=== PATIENT | male | born 2000 | race Asian ===

== ENCOUNTER 2024-01-23 15:28 | Emergency (ER) | payer OTHER, SELFPAY ==
--- NOTE | ~2024-01-23 | XR_ITS ---
XR hand RT min 3V DATE: 01/23/2024 16:01 INDICATION: Injury from fall. Pain, swelling, abrasion TECHNIQUE: 3 views COMPARISON: None FINDINGS: There is a small smooth bony ossicle at the medial aspect of the head of the middle phalanx of the fourth digit. The smooth margins suggest that this is an chronic finding, likely an old small cortical avulsion fracture of the medial head of the middle phalanx; recent cortical avulsion fractu re is not definitively excluded considered much less likely. Recommend clinical correlation. No other fracture or dislocation, periosteal reaction or bone destruction is detected.. IMPRESSION: Probable small old cortical avulsion fracture of the dorsal medial aspect of the head of the middle phalanx of the fourth digit. No acute fracture or dislocation is evident Reviewed, dictated and finalized at location A.
--- NOTE | 2024-01-23 15:36 | ED.UPPEXIN ---
HPI - Extremity Injury (Upper) General Chief Complaint: Extremity Injury, Upper Stated Complaint: fall, right wrist/inj Time Seen by Provider: 01/23/24 15:48 Source: patient and RN notes reviewed Mode of arrival: ambulatory Limitations: no limitations History of Present Illness HPI narrative: 24-year-old male presents with concern for injury to the right hand. Reports he fell last night, slipped on the floor and cut his hand on ER. He also reports hand pain, 5th digit pain. He is up-to-date on his tetanus vaccination MD complaint: injury to: right and hand Related Data Home Medications Medication Instructions Recorded Confirmed No Home Medications 01/23/24 01/23/24 Allergies Allergy/AdvReac Type Severity Reaction Status Date / Time No Known Allergies Allergy Verified 01/23/24 15:49 Review of Systems Review of Systems: CONSTITUTIONAL: Denies malaise, chills, sweats, or fever. SKIN: Denies rash or itching. Reports abrasion to the right hand/wrist MUSCULOSKELETAL: Reports right hand pain NEUROLOGIC: Denies numbness, weakness All systems reviewed & are unremarkable except as noted in HPI and below PMFSH Comments At time of signature, agree with nursing past medical, surgical, social and family history. There is no relevant family history pertinent to the presenting complaint Exam Narrative: GENERAL: Well-appearing, well-nourished, and in no acute distress. HEAD: Normocephalic, atraumatic. EYES: PERRLA, conjunctivae clear NECK: Supple. CHEST: Speaks in full sentences. No respiratory distress. HEART: Regular rate and rhythm. Normal and equal peripheral pulses. EXTREMITIES: Right wrist, hand, digits have grossly normal strength and sensation, normal range of motion. Mild dorsal lateral edema, erythema, tenderness. Fifth mid digit tenderness. Normal sensation with sensitivity to light touch and pain. No open wounds, no skin tenting, no devitalized tissue or atrophy, no trophic changes, no obvious deformity, alignment normal, nearby joints and structures intact. Distal pulses palpable and equal bilaterally, skin warm, dry, pink. Capillary refill less than 3 seconds. SKIN: Warm, dry, no rash. NEURO: Alert and oriented x3. PSYCH: Normal mood and affect Extrem: Hand/finger images: 1. 2 cm in diameter skin avulsion Course Course Emergency Course: Wound cleansed, bandaged, no active bleeding Patient is aware of diagnosis, understands and agrees to treatment plan. Anticipatory guidance given. Patient agrees to follow-up as directed and is aware of reasons to seek care at the emergency department. Portions of this record may have been created with voice recognition software Level of Care: Express Care Visit Vital Signs Vital signs: Reviewed. MDM - Extremity Injury (Upper) MDM Narrative Medical decision making narrative: Patients injury and pain is consistent with musculoskeletal etiology. No signs of neurological or vascular compromise on exam. Compartments and tissues are soft without signs of compartment syndrome. Pain is felt appropriate for further evaluation on an outpatient basis. Imaging Data My impression: Images reviewed, interpreted by radiologist, agree, see report. Radiologist's impression: XR hand RT min 3V DATE: 01/23/2024 16:01 INDICATION: Injury from fall. Pain, swelling, abrasion TECHNIQUE: 3 views COMPARISON: None FINDINGS: There is a small smooth bony ossicle at the medial aspect of the head of the middle phalanx of the fourth digit. The smooth margins suggest that this is an chronic finding, likely an old small cortical avulsion fracture of the medial head of the middle phalanx; recent cortical avulsion fracture is not definitively excluded considered much less likely. Recommend clinical correlation. No other fracture or dislocation, periosteal reaction or bone destruction is detected.. IMPRESSION: Probable small old cortical avulsion fracture of the dorsal
[2024-01-23 15:50] VITALS: BP 130/82; PULSE 88; RESP 16; TEMP 37.2; O2SAT 99
== END 2024-01-23 16:17 | disposition home or self-care (01) ==
PROVIDERS: Emergency Provider Nurse Practitioner
DX: S61.401A Unspecified open wound of right hand, initial encounter (principal); S63.91XA Sprain of unspecified part of right wrist and hand, initial encounter; W01.0XXA Fall on same level from slipping, tripping and stumbling without subsequent striking against object, initial encounter
CPT/HCPCS: 73130; 99203; G0463

== ENCOUNTER 2024-05-02 15:22 | Emergency (ER) | payer OTHER, SELFPAY ==
--- NOTE | ~2024-05-02 | CT_ITS ---
CT abdomen pelvis wo con Ordering provider: Luba Hays PA-C History: 24 years Male with . L flank pain . Comparison: None. Technique: CT abdomen and pelvis without IV and without oral contrast. Automated exposure control and iterative reconstruction technique were employed. The dose-length product was 373.14 mGy-cm. Findings: VISUALIZED LOWER CHEST: Normal. UPPER ABDOMINAL ORGANS: Liver: Normal. Gallbladder: Normal. Spleen: Normal. Stomach/duodenum: Normal. Pancreas: Normal. Adrenals: Normal. Kidneys: Normal. PELVIC ORGANS: The bladder is slightly underfilled. BOWEL AND MESENTERY: Colon: No evidence of diverticulitis. Slightly thickened wall of the rectum evaluation for proctitis is advised. Normal appendix. Small Bowel: Normal. No obstruction. Peritoneum/mesentery: No free air or free fluid. No mesenteric lymphadenopathy. RETROPERITONEUM: Normal aorta. No retroperitoneal lymphadenopathy. MUSCULOSKELETAL: Superficial soft tissues: The superficial soft tissues are normal. Bones: Normal spine. IMPRESSION: 1. No evidence of appendicitis, diverticulitis or intestinal obstruction. 2. No definite kidney stones. Slightly thickened wall of the urinary bladder. Evaluation for cystiti s advised. Reviewed, dictated and finalized at location A. [employer] SUPERVISOR IMPRESSION: 1. No evidence of appendicitis, diverticulitis or intestinal obstruction. 2. No definite kidney stones. Slightly thickened wall of the urinary bladder. Evaluation for cystitis advised.
[2024-05-02 16:15] VITALS: BP 136/81; PULSE 71; RESP 15; TEMP 36.4; O2SAT 100
--- NOTE | 2024-05-02 17:20 | ED_ITS ---
HPI - Abdominal Pain General Chief Complaint: Abdominal Pain <Luba Hays PA-C - Last Filed: 05/02/24 17:25> Stated Complaint: flank pain <Luba Hays PA-C - Last Filed: 05/02/24 17:25> Time Seen by Provider: 05/02/24 17:21 <Luba Hays PA-C - Last Filed: 05/02/24 17:25> Focused HPI: Patient is a 24-year-old male who presents the ED with report of flank pain. Patient reports he had his 1st kidney stone around 2 months ago. Over the last 2 weeks, he has had intermittent pain throughout bilateral flank regions. For the past 2 days, he has had worsening pain throughout his left flank. He has been taking an [id number] medicine from [facility] with minimal improvement. Denies dysuria, hematuria, diarrhea, constipation, fevers, N/V/D. GENERAL: Well-appearing, well-nourished, and in no acute distress. HEAD: Normocephalic, atraumatic. CHEST: Clear to auscultation. ?No respiratory distress. HEART: Regular rate and rhythm.? MSK: Mild TTP in L lumbosacral region. no midline spinal tenderness. ABD: No tenderness throughout abdomen. NEURO: ?Alert and oriented x3. Patient screened in triage and initial orders placed.? ?Additional care and disposition to be based upon?diagnostic testing and treatment. <Luba Hays PA-C - Last Filed: 05/02/24 17:25> Source: patient <Luba Hays PA-C - Last Filed: 05/02/24 17:25> Mode of arrival: ambulatory <PERI Humphrey Last Filed: 05/02/24 17:25> Limitations: no limitations <Luba Hays PA-C - Last Filed: 05/02/24 17:25> History of Present Illness HPI narrative: Agree with HPI. Denies trauma to back. <Jameel Kim MD - Last Filed: 05/02/24 21:24> Related Data Home Medications: Home Medications ?Medication ?Instructions ?Recorded ?Confirmed ?Last Taken ?Type No Home Medications 01/23/24 01/23/24 Unknown History <Luba Hays PA-C - Last Filed: 05/02/24 17:25> Allergies/Adverse Reactions: Allergies Allergy/AdvReac Type Severity Reaction Status Date / Time No Known Allergies Allergy Verified 01/23/24 15:49 <Luba Hays PA-C - Last Filed: 05/02/24 17:25> Review of Systems 2 Review of Systems: All systems reviewed & are unremarkable except as noted in HPI and below <Jameel Kim MD - Last Filed: 05/02/24 21:24> Constitutional: Constitutional: Reports no additional constitutional complaints <Jameel Kim MD - Last Filed: 05/02/24 21:24> Cardiovascular: Cardiovascular: Reports no additional cardiovascular complaints <Jameel Kim MD - Last Filed: 05/02/24 21:24> Respiratory: Respiratory: Reports no additional respiratory complaints < Jameel Kim MD - Last Filed: 05/02/24 21:24> Gastrointestinal: Gastrointestinal: Reports no additional gastrointestinal complaints <Jameel Kim MD - Last Filed: 05/02/24 21:24> Genitourinary: Genitourinary: Reports no additional male genitourinary complaints <Jameel Kim MD - Last Filed: 05/02/24 21:24> PMFSH Past Medical History Medical History: Medical History (Updated 05/02/24 @ 21:20 by Jameel Kim MD) Kidney stones <Luba Hays PA-C - Last Filed: 05/02/24 17:25> Surgical History Surgical History: Surgical History (Updated 05/02/24 @ 21:15 by Jameel Kim MD) No history of previous surgery <Luba Hays PA-C - Last Filed: 05/02/24 17:25> Exam 2 Narrative: GENERAL: Well-appearing, well-nourished, and in no acute distress. HEAD: Normocephalic, atraumatic. ENT: Mucous membranes moist. CHEST: Clear to auscultation. No respiratory distress. HEART: Regular rate and rhythm. Normal peripheral pulses. ABDOMEN: Soft, nontender, nondistended. BACK: No CVA tenderness. NO significant tenderness to midline/paraspinal regions. EXTREMITIES: Normal range of motion. No edema. SKIN: Warm, dry, no rash. NEURO: Alert and oriented x3. PSYCH: Normal mood and affect. <Jameel Kim MD - Last Filed: 05/02/24 21:24> Course Course Emergency Course: Informed of results. Cuney for pain. D/c with naproxen. Likely muscle strain. <Jameel Kim MD - Last Filed: 05/02/24 21:24> Vital Signs Vital signs: Vital Signs Temperature 97.6 F 05/02/24 16:15 Pulse Rate 71 05/02/24 16:15 Respiratory Rate 15 05/02/24 16:15 Blood Pressure 136/81 05/02/24 16:15 Pulse Oximetry 100 05/02/24 16:15 Oxygen Delivery Room Air 05/02/24 16:15 Temperature 97.6 F 05/02/24 16:15 Pulse Rate 71 05/02/24 16:15 Respiratory Rate 15 05/02/24 16:15 Blood Pressure 136/81 05/02/24 16:15 Pulse Oximetry 100 05/02/24 16:15 Oxygen Delivery Room Air 05/02/24 16:15 <Luba Hays PA-C - Last Filed: 05/02/24 17:25> Vital Signs Temperature 97.6 F 05/02/24 16:15 Pulse Rate 71 05/02/24 16:15 Respiratory Rate 15 05/02/24 16:15 Blood Pressure 136/81 05/02/24 16:15 Pulse Oximetry 100 05/02/24 16:15 Oxygen Delivery Room Air 05/02/24 16:15 Temperature 97.6 F 05/02/24 16:15 Pulse Rate 71 05/02/24 16:15 Respiratory Rate 15 05/02/24 16:15 Blood Pressure 136/81 05/02/24 16:15 Pulse Oximetry 100 05/02/24 16:15 Oxygen Delivery Room Air 05/02/24 16:15 <Jameel Kim MD - Last Filed: 05/02/24 21:24> MDM - Abdominal Pain MDM Narrative Medical decision making narrative: MSE by HERNAN in triage. <Luba Hays PA-C - Last Filed: 05/02/24 17:25> Lab Data Result diagrams: 05/02/24 18:04 05/02/24 18:04 <Luba Hays PA-C - Last Filed: 05/02/24 17:25> Labs: Lab Results 05/02/24 05/02/24 Range/Units 18:04 18:20 WBC 7.1 (4.5-10.0) K/mm3 RBC 5.67 (4.6-6.20) M/mm3 Hgb 16.7 (14.0-18.0) g/dL Hct 48.5 (42.0-52.0) % MCV 85.5 (80-100) fl MCH 29.5 (26-34) pg MCHC 34.4 (32-36) g/dl RDW 12.4 (11.5-14.5) % Plt Count 214 (150-375) k/mm3 MPV 8.8 (7.4-10.4) fl Immature Gran % (Auto) 0.4 (0-0.5) % Neut % (Auto) 56.3 (45.5-73.1) % Lymph % (Auto) 32.5 (18.3-44.2) % Clinch % (Auto) 9.3 H (2.6-8.5) % Eos % (Auto) 1.1 (0-4.4) % Baso % (Auto) 0.4 (0.2-1.2) % Lymph # (Auto) 2.30 (0.9-3.2) K/mm3 Clinch # (Auto) 0.7 H (0.1-0.6) K/mm3 Eos # (Auto) 0.1 (0-0.3) K/mm3 Baso # (Auto) 0.0 (0.0-0.1) K/mm3 Abs Immat Gran (auto) 0.03 (0.00-0.031) K/mm3 Absolute Neuts (auto) 4.0 (1.3-6.7) K/mm3 Absolute Nucleated RBC 0.000 (0.0-0.012) K/mm3 Nucleated RBC % 0.0 (0.0-0.2) % Sodium 136 L (137-145) mmol/L Potassium 3.7 (3.4-5.0) mmol/L Chloride 103 (98-107) mmol/L Carbon Dioxide 33 H (22-30) mmol/L Anion Gap 0 L (4-12) mmol/L BUN 15 (9-20) mg/dL Creatinine 0.90 (0.7-1.3) mg/dL Estim Creat Clear Calc 104 ml/min Estimated GFR > 60 (59 - ) Glucose 83 (65-110) mg/dL Calcium 9.1 (8.4-10.2) mg/dL Total Bilirubin 0.6 (0.2-1.3) mg/dL AST 22 (17-59) U/L ALT 17 (6-50) U/L Alkaline Phosphatase 57 (38-126) U/L Total Protein 8.0 (6.3-8.2) g/dL Albumin 4.4 (3.5-5.1) g/dL Lipase 104 (23-300) U/L Urine Color Yellow (Yellow) Urine Appearance Clear (Clear) Urine pH 7.0 (5.0-9.0) Ur Specific [place] 1.011 (1.001-1.035) Urine Protein Negative (Negative) mg/dL Urine Glucose (UA) Negative (Negative) mg/dL Urine Ketones Negative (Negative) mg/dL Ur Blood (Man) Trace (Negative) Urine Nitrate Negative (Negative) Urine Bilirubin Negative (Negative) Urine Urobilinogen 0.2 (<2.0) mg/dL Leukocyte Esterase Rfl Negative (Negative) ARY/UL Urine RBC 0-2 (0-2) /hpf Urine WBC 0-5 (0-3) /hpf Ur Squamous Epith Cells None seen (Few) /hpf Urine Bacteria None seen /hpf Urine Casts 0-2 <Luba Hays PA-C - Last Filed: 05/02/24 17:25> Lab Results 05/02/24 05/02/24 Range/Units 18:04 18:20 WBC 7.1 (4.5-10.0) K/mm3 RBC 5.67 (4.6-6.20) M/mm3 Hgb 16.7 (14.0-18.0) g/dL Hct 48.5 (42.0-52.0) % MCV 85.5 (80-100) fl MCH 29.5 (26-34) pg MCHC 34.4 (32-36) g/dl RDW 12.4 (11.5-14.5) % Plt Count 214 (150-375) k/mm3 MPV 8.8 (7.4-10.4) fl Immature Gran % (Auto) 0.4 (0-0.5) % Neut % (Auto) 56.3 (45.5-73.1) % Lymph % (Auto) 32.5 (18.3-44.2) % Clinch % (Auto) 9.3 H (2.6-8.5) % Eos % (Auto) 1.1 (0-4.4) % Baso % (Auto) 0.4 (0.2-1.2) % Lymph # (Auto) 2.30 (0.9-3.2) K/mm3 Clinch # (Auto) 0.7 H (0.1-0.6) K/mm3 Eos # (Auto) 0.1 (0-0.3) K/mm3 Baso # (Auto) 0.0 (0.0-0.1) K/mm3 Abs Immat Gran (auto) 0.03 (0.00-0.031) K/mm3 Absolute Neuts (auto) 4.0 (1.3-6.7) K/mm3 Absolute Nucleated RBC 0.000 (0.0-0.012) K/mm3 Nucleated RBC % 0.0 (0.0-0.2) % Sodium 136 L (137-145) mmol/L Potassium 3.7 (3.4-5.0) mmol/L Chloride 103 (98-107) mmol/L Carbon Dioxide 33 H (22-30) mmol/L Anion Gap 0 L (4-12) mmol/L BUN 15 (9-20) mg/dL Creatinine 0.90 (0.7-1.3) mg/dL Estim Creat Clear Calc 104 ml/min Estimated GFR > 60 (59 - ) Glucose 83 (65-110) mg/dL Calcium 9.1 (8.4-10.2) mg/dL Total Bilirubin 0.6 (0.2-1.3) mg/dL AST 22 (17-59) U/L ALT 17 (6-50) U/L Alkaline Phosphatase 57 (38-126) U/L Total Protein 8.0 (6.3-8.2) g/dL Albumin 4.4 (3.5-5.1) g/dL Lipase 104 (23-300) U/L Urine Color Yellow (Yellow) Urine Appearance Clear (Clear) Urine pH 7.0 (5.0-9.0) Ur Specific [place] 1.011 (1.001-1.035) Urine Protein Negative (Negative) mg/dL Urine Glucose (UA) Negative (Negative) mg/dL Urine Ketones Negative (Negative) mg/dL Ur Blood (Man) Trace (Negative) Urine Nitrate Negative (Negative) Urine Bilirubin Negative (Negative) Urine Urobilinogen 0.2 (<2.0) mg/dL Leukocyte Esterase Rfl Negative (Negative) ARY/UL Urine RBC 0-2 (0-2) /hpf Urine WBC 0-5 (0-3) /hpf Ur Squamous Epith Cells None seen (Few) /hpf Urine Bacteria None seen /hpf Urine Casts 0-2 <Jameel Kim MD - Last Filed: 05/02/24 21:24> Imaging Data Radiologist's impression: ITS Impressions Abdomen/Pelvis CT 05/02/24 18:25 IMPRESSION: 1. No evidence of appendicitis, diverticulitis or intestinal obstruction. 2. No definite kidney stones. Slightly thickened wall of the urinary bladder. Evaluation for cystitis advised. <Luba Hays PA-C - Last Filed: 05/02/24 17:25> ITS Impressions Abdomen/Pelvis CT 05/02/24 18:25 IMPRESSION: 1. No evidence of appendicitis, diverticulitis or intestinal obstruction. 2. No definite kidney stones. Slightly thickened wall of the urinary bladder. Evaluation for cystitis advised. <Jameel Kim MD - Last Filed: 05/02/24 21:24> Discharge Plan Discharge Clinical Impression: Low back pain <Luba Hays PA-C - Last Filed: 05/02/24 17:25> Patient Disposition: Home, Self-Care <Luba Hays PA-C - Last Filed: 05/02/24 17:25> Condition: Stable <Luba Hays PA-C - Last Filed: 05/02/24 17:25> Instructions: Acute Low Back Pain (ED) <PERI Humphrey Last Filed: 05/02/24 17:25> Additional Instructions: Please return to the emergency department if you develop severe pain that is not controlled by pain medications or if you are unable to walk because of pain or weakness. Return to the emergency department immediately if you develop fevers, loss of bowel or bladder control (dribbling of urine or having accidents you wouldn't normally have), inability to urinate, numbness of your genital or anal area, or weakness/numbness of your legs or arms as these could all be signs of a serious medical emergency. <PERI Humphrey Last Filed: 05/02/24 17:25> Patient Language: Chinese <Luba Hays PA-C - Last Filed: 05/02/24 17:25> Prescriptions: New cyclobenzaprine 10 mg tablet 10 mg PO TID PRN (Reason: muscle spasm) Qty: 20 0RF naproxen 375 mg tablet 375 mg PO BID Qty: 14 0RF No Action No Home Medications <PERI Humphrey Last Filed: 05/02/24 17:25> Follow-up/Referrals: PHYSICIAN,AVIATION ELECTRICAL TECHNICIAN [Primary Care Provider] - Arturo Martin MD [Physician] - 1 Week <PERI Humphrey Last Filed: 05/02/24 17:25>
[2024-05-02 18:13] LABS: Basophils Percent Auto 0.4 % (0.2-1.2); Eosinophils Absolute Auto 0.1 K/mm3 (0-0.3); Eosinophils Percent Auto 1.1 % (0-4.4); Hematocrit 48.5 % (42.0-52.0); Hemoglobin 16.7 g/dL (14.0-18.0); Immature Granulocyte Absolute 0.03 K/mm3 (0.00-0.031); Immature Granulocyte Percent A 0.4 % (0-0.5); Lymphocytes Percent Auto 32.5 % (18.3-44.2); Mean Corpuscular HGB Conc 34.4 g/dl (32-36); Mean Corpuscular Hemoglobin 29.5 pg (26-34); Mean Corpuscular Volume 85.5 fl (80-100); Mean Platelet Volume 8.8 fl (7.4-10.4); Monocytes Absolute Auto 0.7 K/mm3 (0.1-0.6); Monocytes Percent Auto 9.3 % (2.6-8.5); Neutrophils Percent Auto 56.3 % (45.5-73.1); Platelet Count Result 214 k/mm3 (150-375); Red Blood Count 5.67 M/mm3 (4.6-6.20); Red Cell Distribution Width 12.4 % (11.5-14.5); White Blood Count 7.1 K/mm3 (4.5-10.0)
[2024-05-02] MEDS: HYDROcodone/acetaminophen (*CRX) 5-325 MG TABLET 1 TAB PO (18:19)
[2024-05-02 18:27] LABS: Alanine Aminotransferase 17 U/L (6-50); Albumin Level 4.4 g/dL (3.5-5.1); Alkaline Phosphatase 57 U/L (38-126); Anion Gap 0 mmol/L (4-12); Aspartate Amino Transferase 22 U/L (17-59); Bilirubin,Total 0.6 mg/dL (0.2-1.3); Blood Urea Nitrogen 15 mg/dL (9-20); Calcium 9.1 mg/dL (8.4-10.2); Carbon Dioxide 33 mmol/L (22-30); Chloride 103 mmol/L (98-107); Estimated CRCL calculation 104 ml/min; Estimated Glomerular Filt Rate > 60; Glucose 83 mg/dL (65-110); Lipase 104 U/L (23-300); Potassium 3.7 mmol/L (3.4-5.0); Sodium 136 mmol/L (137-145)
[2024-05-02 19:04] LABS: Add Urine Microscopic? YES; Appearance Urine Clear (Clear); Bacteria Urine None Seen /hpf; Bilirubin Urine Negative (Negative); Blood Urine Trace (Negative); Color Urine Yellow (Yellow); Glucose Urine UA Negative (Negative); Ketones Urine Negative (Negative); Leukocyte Esterase Ur Negative LEU/UL (Negative); Nitrate Urine Negative (Negative); Non Pathogenic Casts 0-2; Protein Urine Negative (Negative); RBC Urine 0-2 /hpf (0-2); Specific Grav Ur 1.011 (1.001-1.035); Squamous Epithelial Cell Urine None Seen /hpf (Few); Urobilinogen Urine 0.2 mg/dL (<2.0); WBC Urine 0-5 /hpf (0-3)
--- NOTE | 2024-05-02 21:20 | PC.NURSE ---
pt verbalized left sided back pain - denies trying otc ibuprofen/tylenol, heat/ice for symptoms. edp shahla at bedside.
[2024-05-02 22:32] VITALS: BP 126/86; PULSE 86; RESP 16; TEMP 36.6; O2SAT 98
== END 2024-05-02 22:37 | disposition home or self-care (01) ==
PROVIDERS: Physician Assistant; Emergency Provider Emergency Medicine
DX: M54.50 Low back pain, unspecified (principal); Z20.822 Contact with and (suspected) exposure to COVID-19
CPT/HCPCS: 36415; 74176; 80053; 81001; 83690; 85025; 99284; A9270